=== PATIENT | female | born 1960 | race Caucasian/White ===

== ENCOUNTER 2022-09-28 08:38 | Observation (INO) | payer OTHER, SELFPAY ==
[2022-09-28 08:44] VITALS: BP 115/74; PULSE 89; RESP 18; TEMP 36.6; O2SAT 98; BMI 34.9
--- NOTE | 2022-09-28 08:59 | ED.ABDPAIN1 ---
HPI - Abdominal Pain General Chief Complaint: Abdominal Pain Stated Complaint: ABDOMINAL PAIN Time Seen by Provider: 09/28/22 08:49 Source: patient Mode of arrival: walk-in Limitations: no limitations History of Present Illness HPI narrative: 62-year-old female presents for bilateral lower abdominal pain. She's had it for five days. She's had issues with urinary tract infections recently. She states she was sweaty and thinks that she had a fever home but she didn't check her temperature. No trauma or constipation. The pain is moderate and continuous. Related Data Allergies Allergy/AdvReac Type Severity Reaction Status Date / Time No Known Drug Allergies Allergy Verified 09/28/22 08:44 Review of Systems ROS Narrative A ten point review of systems is negative except as noted above. Exam Narrative Exam Narrative: Nurses note and vital signs reviewed and patient is not hypoxic. General: The patient appears well and in no apparent distress. Patient is resting comfortably on cart. Skin: Warm, dry, no pallor noted. There is no rash noted. Head: Normocephalic, atraumatic Eye: Normal conjunctiva, no drainage Ears, Nose, Mouth, and Throat: oral mucosa is moist. Nares patent. Cardiovascular: Regular Rate and Rhythm Respiratory: Patient is in no distress, no accessory muscle use, lungs are clear to auscultation, no wheezing, rales or rhonchi Back: non-tender GI: Normal bowel sounds, mild tenderness to palpation across the lower abdomen, no masses appreciated. No rebound, guarding, or rigidity noted. Musculoskeletal: The patient has no evidence of calf tenderness, no pitting edema, symmetrical pulses noted bilaterally Neurological: A&O, normal speech Psychiatric: Cooperative Constitutional Vital Signs, click to edit/add: Last Vital Signs Temp 97.8 F 09/28/22 08:44 Pulse 89 09/28/22 08:44 Resp 18 09/28/22 08:44 BP 115/74 09/28/22 08:44 Pulse Ox 98 09/28/22 08:44 O2 Del Method Room Air 09/28/22 08:44 Course Vital Signs Vital signs: Vital Signs Temperature 97.8 F 09/28/22 08:44 Pulse Rate 89 09/28/22 08:44 Respiratory Rate 18 09/28/22 08:44 Blood Pressure 115/74 09/28/22 08:44 Pulse Oximetry 98 09/28/22 08:44 Oxygen Delivery Method Room Air 09/28/22 08:44 Temperature 97.8 F 09/28/22 08:44 Pulse Rate 89 09/28/22 08:44 Respiratory Rate 18 09/28/22 08:44 Blood Pressure 115/74 09/28/22 08:44 Pulse Oximetry 98 09/28/22 08:44 Oxygen Delivery Method Room Air 09/28/22 08:44 MDM - Abdominal Pain MDM Narrative Medical decision making narrative: pyelonephritis is identified with WBC of sixteen thousand. Blood and urine cultures are performed and she was given IV Rocephin. Findings are discussed with the patient and her . case discussed with Dr. Smith. Differential Diagnosis Differential diagnosis: Likely abdominal pain, calculus of kidney, constipation, diverticulitis, gastroenteritis and small bowel obstruction Lab Data Attestation: I reviewed the patient's lab results. Labs: Lab Results 09/28/22 Range/Units 09:00 WBC 16.6 H (4.0-11.0) 10^3/uL RBC 4.08 L (4.20-5.40) 10^6/uL Hgb 13.2 (12.0-16.0) g/dL Hct 39.6 (36.0-48.0) % MCV 97.1 (81.0-99.0) fL MCH 32.4 (26.7-34.0) pg MCHC 33.3 (29.9-35.2) g/dL RDW 12.4 (11.0-15.0) % Plt Count 307 (150-450) 10^3/uL MPV 10.2 (9.5-13.5) fL Seg Neuts % (Manual) 75.0 Lymphocytes % (Manual) 10.0 L (20.5-60.0) % Monocytes % (Manual) 15.0 H (1.7-12.0) % Neutrophils # (Manual) 12.45 H (1.4-6.5) 10^3/uL Lymphocytes # (Manual) 1.66 (1.20-3.80) 10^3/uL Monocytes # (Manual) 2.49 H (0.30-0.80) 10^3/uL Sodium 135 L (136-145) mmol/L Potassium 3.2 L (3.5-5.1) mmol/L Chloride 100 (98-107) mmol/L Carbon Dioxide 25.8 (21.0-32.0) mmol/L Anion Gap 12.4 BUN 13.0 (7.0-18.0) mg/dL Creatinine 1.12 H (0.55-1.02) mg/dL Est GFR ( Amer) 60 (>=60) Est GFR (Non-Af Amer) 49 L (>=60) BUN/Creatinine Ratio 11.6 Glucose 125 H (74-106) mg/dL Calcium 8.9 (8.5-10.1) mg/dL Urine Color Yellow (YELLOW) Urine Clarity Clear (CLEAR) Urine pH 5.5 (5.0-9.0) Ur Specific [place] 1.020 (1.005-1.025) Urine Protein 100 A (NEG/TRACE) mg/dL Urine Glucose (UA) Negative (NEGATIVE) mg/dL Urine Ketones 15 A (NEGATIVE) mg/dL Urine Occult Blood Large A (NEGATIVE) Urine Nitrite Positive A (NEGATIVE) Urine Bilirubin Moderate A (NEGATIVE) Urine Urobilinogen >=8.0 (0.2-1.0) EU/dL Ur Leukocyte Esterase Large A (NEGATIVE) Urine RBC 5-10 A (0-2) #/HPF Urine WBC 20-50 A (NONE SEEN) #/HPF Ur Squamous Epith Cells Many A (NONE/RARE) #/LPF Urine Bacteria Large A (NONE SEEN) #/HPF Urine Mucus None seen (NONE SEEN) Ur Culture Indicated? Yes Imaging Data CT scan - abdomen: Radiologist's impression: CT abdomen and pelvis per radiology shows acute pyelonephritis Discharge Plan Discharge Chief Complaint: Abdominal Pain Clinical Impression: Pyelonephritis Patient Disposition: Admitted As Inpatient Time of Disposition Decision: 11:17 Condition: Good Referrals: SPENSER SINGH [Primary Care Provider] - 1 week
[2022-09-28 09:20] LABS: Bilirubin Urine MODERATE (NEGATIVE); Blood Urine LARGE (NEGATIVE); Clarity Urine CLEAR (CLEAR); Color Urine YELLOW (YELLOW); Glucose Urine UA NEGATIVE (NEGATIVE); Hematocrit 39.6 % (36.0-48.0); Hemoglobin 13.2 g/dL (12.0-16.0); Ketones Urine 15 mg/dL (NEGATIVE); Leukocyte Esterase Urine LARGE (NEGATIVE); Mean Corpuscular HGB Conc 33.3 g/dL (29.9-35.2); Mean Corpuscular Hemoglobin 32.4 pg (26.7-34.0); Mean Corpuscular Volume 97.1 fL (81.0-99.0); Mean Platelet Volume 10.2 fL (9.5-13.5); Nitrite Urine POSITIVE (NEGATIVE); Platelet Count 307 10^3/uL (150-450); Protein Urine 100 mg/dL (NEG/TRACE); Red Blood Count 4.08 10^6/uL (4.20-5.40); Red Cell Distribution Width 12.4 % (11.0-15.0); Urobilinogen Urine >=8.0 EU/dL (0.2-1.0); White Blood Count 16.6 10^3/uL (4.0-11.0); pH Urine 5.5 (5.0-9.0)
[2022-09-28 09:27] LABS: Anion Gap 12.4; BUN Creatinine Ratio 11.6; Calcium 8.9 mg/dL (8.5-10.1); Carbon Dioxide 25.8 mmol/L (21.0-32.0); Chloride 100 mmol/L (98-107); Estimated GFR (African America 60 (>=60); Estimated GFR (Non-African Ame 49 (>=60); Glucose 125 mg/dL (74-106); Potassium 3.2 mmol/L (3.5-5.1); Sodium 135 mmol/L (136-145)
[2022-09-28 09:43] LABS: Lymphocytes Absolute Manual 1.66 10^3/uL (1.20-3.80); Segmented Neut Absolute Manual 12.45 10^3/uL (1.4-6.5)
[2022-09-28 09:44] LABS: Monocytes Absolute Manual 2.49 10^3/uL (0.30-0.80)
[2022-09-28 09:50] LABS: Urine Microscopic Indicated YES
--- NOTE | 2022-09-28 09:50 | CT_ITS ---
The [address] [address] Patient Name: ANTOINETTE COBB MRN: [id number] date: 1960 Sex: F Assigned Patient Location: ER Current Patient Location: ER Accession/Order Number: [id number] Exam Date: 09/28/2022 10:00 Report Date: 09/28/2022 10:51 At the request of: CARLOS NASSAR Procedure: CT abdomen pelvis w con EXAM: CT abdomen pelvis w con HISTORY: low abd pain, elevated WBC COMPARISON: None. TECHNIQUE: Axial CT images were obtained of the abdomen and pelvis with intravenous contrast. Multiplanar reconstructions were performed. ABDOMEN/PELVIS FINDINGS: Lower Chest: There is a small cystic lesion in the partially visualized posterior mediastinum, possibly representing a pericardial cyst, measuring 2.4 cm. Liver: A cystic lesion is present in the right hepatic lobe measuring 1.0 cm. Biliary/Gallbladder: Gallstones present in the gallbladder lumen. Pancreas: Unremarkable. Spleen: Unremarkable. Adrenal Glands: Unremarkable. Kidneys: Multifocal areas of heterogeneous hypoenhancement present in the right kidney. No renal calculus or hydronephrosis identified. There is mild right-sided perinephric fat stranding. Gastrointestinal/Peritoneum: There is a small hiatal hernia. Moderate colonic diverticulosis. The appendix is unremarkable. No free air or free fluid. Vascular: Unremarkable. Lymph Nodes: No enlarged lymph nodes by CT size criteria. Pelvic Organs: Unremarkable. Bladder: A few small foci of gas are present in the urinary bladder. Bones: No acute osseous abnormality. Moderate multilevel degenerative changes are present in the visualized spine. Soft tissues: Unremarkable. CT/CT abdomen pelvis w con IMPRESSION: 1. Multifocal areas of heterogeneous hypoenhancement in the right kidney with mild perinephric fat stranding, likely due to acute pyelonephritis. 2. A few small foci of gas in the urinary bladder, possibly due to recent catheterization or an infectious etiology. 3. Moderate colonic diverticulosis. 4. Small hiatal hernia. 5. Cholelithiasis. Electronically authenticated by: RONAL JORDAN Date: 09/28/2022 10:51
[2022-09-28 09:56] LABS: Bacteria Urine LARGE #/HPF (NONE SEEN); Mucus Urine NONE SEEN (NONE SEEN); Squamous Epithelial Cell Urine MANY #/LPF (NONE/RARE); WBC Urine 20-50 #/HPF (NONE SEEN)
[2022-09-28 09:57] LABS: Urine Culture Indicated YES
[2022-09-28] MEDS: CEFTRIAXONE 2,000 MG in 0.9 % SODIUM CHLORIDE 100 ML 200 MG IV (11:22)
[2022-09-28 11:28] LABS: Bilirubin Total 2.1 mg/dL (0.2-1.0)
[2022-09-28 11:29] LABS: Alanine Aminotransferase 57 U/L (14-59); Albumin Globulin Ratio 0.8; Albumin Level 3.4 g/dL (3.4-5.0); Alkaline Phosphatase 193 U/L (46-116); Aspartate Amino Transferase 28 U/L (15-37); Bilirubin Direct 1.3 mg/dL (0.0-0.2); Globulin 4.1 g/dL; Total Protein 7.5 g/dL (6.4-8.2)
[2022-09-28 12:02] VITALS: BP 141/76; PULSE 77; RESP 16; TEMP 37.2; O2SAT 97; BMI 33.7
--- NOTE | 2022-09-28 12:09 | P.HP_ITS ---
H&P: HPI History of Present Illness Chief complaint: Abdominal pain Narrative: 62 y/o female to ER with abdominal pain. Reports not feeling well for several days. Hot and cold chills but not check temp. Frequently broke out in sweat. Severe fatigue and sleeping most of the day. Decreased appetite and nausea but no emesis or diarrhea. Noticed dark urine. Pain in lower abdomen and to ER. WBC elevated. Afebrile. UA showed UTI. TB elevated. CT abdomen showed right pyelonephritis and gallstones. Admitted for treatment. Review of Systems ROS Constitutional Reports: chills, fatigue and night sweats; Denies: fever Cardiovascular Denies: chest pain, palpitations or edema Respiratory Denies: shortness of breath, cough or wheezing Gastrointestinal Reports: abdominal pain and nausea; Denies: vomiting or diarrhea Genitourinary Denies: painful urination, urinary frequency or urinary urgency PFSH PFSH Family History (Updated 09/28/22 @ 11:58 by Allison Wood) Father Family history of COPD (chronic obstructive pulmonary disease) Family history of myocardial infarction Mother Family history of cancer Family history of hypertension Grandfather Family history of diabetes mellitus Social History (Updated 09/28/22 @ 12:02 by Allison Wood) Within the past year, how often did you have a drink containing alcohol: 2-3 times a week Within the past year, how many standard drinks containing alcohol did you have on a typical day: 1 or 2 Within the past year, how often did you have six or more drinks on one occasion: less than monthly Total score: 1 Score interpretation: A score of 3 or more indicates drinking is likely to affect patient's safety. Smoking status: Never smoker Non-prescribed substance use: denies use Previous occupational history: [employer] Highest level of school completed/degree received: Associate degree: occupational, technical, vocational program Are you now , , , , never or living with a partner: In a typical week, how many times do you talk on the telephone with family, friends, or neighbors: 3 or more times per week How often do you get together with friends or relatives: once per week How often do you attend lutheran or mormonism services: never Do you belong to any clubs or organizations such as lutheran groups unions, fraternal or athletic groups, or school groups: no Total score: 1 Score interpretation: A score of less than or equal to 1 indicates the most socially isolated. Little interest or pleasure in doing things: not at all Feeling down, depressed, or hopeless: not at all Feel stressed/tense/nervous/anxious/difficulty sleeping: only a little Meds Home Medications and Allergies Allergies Allergy/AdvReac Type Severity Reaction Status Date / Time No Known Drug Allergies Allergy Verified 09/28/22 08:44 Exam Constitutional Vital Signs, click to edit/add: Last Vital Signs Temp 97.8 F 09/28/22 08:44 Pulse 89 09/28/22 08:44 Resp 18 09/28/22 08:44 BP 115/74 09/28/22 08:44 Pulse Ox 98 09/28/22 08:44 O2 Del Method Room Air 09/28/22 08:44 Documenting provider has reviewed patient's vital signs: yes Common normals: no apparent distress, oriented x3 and alert HENMT Common normals: normocephalic Eye Common normals: PERRL and EOMs intact bilaterally Respiratory Common normals: normal respiratory effort and clear to auscultation bilaterally Cardio Common normals: regular rate, regular rhythm, no gallops, no murmurs and no rub GI Common normals: soft to palpation Auscultation: normoactive bowel sounds Palpation: tender (Mild diffuse TTP); no guarding Extremity General: no edema Results Labs Labs: Short CBC 09/28/22 Range/Units 09:00 WBC 16.6 H (4.0-11.0) 10^3/uL Hgb 13.2 (12.0-16.0) g/dL Hct 39.6 (36.0-48.0) % Plt Count 307 (150-450) 10^3/uL BMP 09/28/22 09:00 Sodium 135 L Potassium 3.2 L Chloride 100 Carbon Dioxide 25.8 BUN 13.0 Creatinine 1.12 H Glucose 125 H Calcium 8.9 Liver Function 09/28/22 Range/Units 09:45 Total Bilirubin 2.1 H (0.2-1.0) mg/dL Direct Bilirubin 1.3 H* (0.0-0.2) mg/dL AST 28 (15-37) U/L ALT 57 (14-59) U/L Alkaline Phosphatase 193 H (46-116) U/L Albumin 3.4 (3.4-5.0) g/dL Urine 09/28/22 Range/Units 09:00 Urine Color Yellow (YELLOW) Urine Clarity Clear (CLEAR) Urine pH 5.5 (5.0-9.0) Ur Specific [place] 1.020 (1.005-1.025) Urine Protein 100 A (NEG/TRACE) mg/dL Urine Glucose (UA) Negative (NEGATIVE) mg/dL Imaging CT scan - abdomen: Attestation: I have reviewed the pertinent imaging results. Assessment and Plan Assessment and Plan (1) Pyelonephritis: (2) Cholelithiasis: (3) Hyperbilirubinemia: (4) Recurrent UTI: Plan Preesnted with acute pyelonephritis and start rocephin and levaquin while awaiting culture. Start IV fluids. Bilirubin elevated and gallstones on CT. Check US RUQ. Likely will be able to discharge in am.
--- NOTE | 2022-09-28 12:26 | CM.NOTE ---
Rounds made with Dr. Smith. Just received from ER. No plan for discharge today.
[2022-09-28] MEDS: POTASSIUM CHLORIDE IN 0.9%NACL 1,000 ML 100 MEQ IV ×2 (13:34→22:26)
[2022-09-28] MEDS: CEFTRIAXONE 1,000 MG in 0.9 % SODIUM CHLORIDE 50 ML 100 MG IV (13:35)
[2022-09-28] MEDS: ACETAMINOPHEN 500 MG TABLET 1000 MG PO ×2 (14:16→22:28)
[2022-09-28] MEDS: LEVOFLOXACIN IN DEXTROSE 5 % 750 MG/150 ML PIGGYBACK IV (14:16)
--- NOTE | 2022-09-28 15:29 | US_ITS ---
The [address] [address] Patient Name: ANTOINETTE COBB MRN: [id number] date: 1960 Sex: F Assigned Patient Location: MS Current Patient Location: MS Accession/Order Number: [id number] Exam Date: 09/28/2022 15:30 Report Date: 09/28/2022 16:21 At the request of: ARUNA VIDAL Procedure: US right upper quadrant EXAM: US right upper quadrant HISTORY: abdominal pain, elevated bilirubin COMPARISON: CT abdomen 09/28/2022 TECHNIQUE: Transabdominal exam FINDINGS: Diffuse fatty infiltration of the liver. The incidental cyst right lobe measuring [address] examination is not identified on the ultrasound examination likely due to its small size. Multiple gallstones within the gallbladder with wall echo shadow triad with the gallbladder shadowed out by the multiple gallstones. No tenderness with sonographic probe. No wall thickening. No abnormal fluid. Common bile duct is normal and measures 6 mm Visualized pancreas is unremarkable The right kidney measures 12 cm No hydronephrosis No free fluid. The portal vein is patent. US/US right upper quadrant IMPRESSION: Gallbladder filled with gallstones. Electronically authenticated by: MATT YAP Date: 09/28/2022 16:21
[2022-09-28 19:41] VITALS: BP 118/75; PULSE 76; RESP 16; TEMP 36.8; O2SAT 95
[2022-09-29 01:52] LABS: A. calcoaceticus-baumannii Cpx NOT DETECTED (NOT DETECTE); Bacteroides fragilis NOT DETECTED (NOT DETECTE); Candida albicans NOT DETECTED (NOT DETECTE); Candida auris NOT DETECTED (NOT DETECTE); Candida glabrata NOT DETECTED (NOT DETECTE); Candida krusei NOT DETECTED (NOT DETECTE); Candida parapsilosis NOT DETECTED (NOT DETECTE); Candida tropicalis NOT DETECTED (NOT DETECTE); Cryptococcus neoformans/gattii NOT DETECTED (NOT DETECTE); Enterobacter cloacae complex NOT DETECTED (NOT DETECTE); Enterococcus faecalis NOT DETECTED (NOT DETECTE); Enterococcus faecium NOT DETECTED (NOT DETECTE); Haemophilus influenzae NOT DETECTED (NOT DETECTE); Klebsiella aerogenes NOT DETECTED (NOT DETECTE); Klebsiella pneumoniae group NOT DETECTED (NOT DETECTE); Listeria monocytogenes NOT DETECTED (NOT DETECTE); Neisseria meningitidis NOT DETECTED (NOT DETECTE); Proteus spp. NOT DETECTED (NOT DETECTE); Pseudomonas aeruginosa NOT DETECTED (NOT DETECTE); Salmonella spp. NOT DETECTED (NOT DETECTE); Serratia marcescens NOT DETECTED (NOT DETECTE); Staphylococcus epidermidis NOT DETECTED (NOT DETECTE); Staphylococcus lugdunensis NOT DETECTED (NOT DETECTE); Staphylococcus spp. NOT DETECTED (NOT DETECTE); Stenotrophomonas maltophilia NOT DETECTED (NOT DETECTE); Streptococcus agalactiae NOT DETECTED (NOT DETECTE); Streptococcus pneumoniae NOT DETECTED (NOT DETECTE); Streptococcus pyogenes NOT DETECTED (NOT DETECTE); Streptococcus spp. NOT DETECTED (NOT DETECTE)
[2022-09-29 02:59] LABS: CTX-M NOT DETECTED (NOT DETECTE); IMP NOT DETECTED (NOT DETECTE); KPC NOT DETECTED (NOT DETECTE); mcr-1 NOT DETECTED (NOT DETECTE)
[2022-09-29 03:00] LABS: NDM NOT DETECTED (NOT DETECTE); OXA-48-like NOT DETECTED (NOT DETECTE); VIM NOT DETECTED (NOT DETECTE)
[2022-09-29 03:03] LABS: Enterobacterales DETECTED (NOT DETECTE)
[2022-09-29 04:26] VITALS: BP 115/61; PULSE 70; RESP 16; TEMP 36.9; O2SAT 95
[2022-09-29 05:09] LABS: Alanine Aminotransferase 55 U/L (14-59); Albumin Globulin Ratio 0.7; Albumin Level 2.7 g/dL (3.4-5.0); Alkaline Phosphatase 189 U/L (46-116); Anion Gap 11.8; Aspartate Amino Transferase 24 U/L (15-37); Bilirubin Total 1.5 mg/dL (0.2-1.0); Calcium 8.2 mg/dL (8.5-10.1); Chloride 106 mmol/L (98-107); Estimated GFR (African America >60 (>=60); Estimated GFR (Non-African Ame 56 (>=60); Globulin 3.7 g/dL; Glucose 113 mg/dL (74-106); Potassium 3.8 mmol/L (3.5-5.1); Sodium 137 mmol/L (136-145); Total Protein 6.4 g/dL (6.4-8.2)
[2022-09-29] MEDS: ACETAMINOPHEN 500 MG TABLET 1000 MG PO (09:50)
[2022-09-29] MEDS: POTASSIUM CHLORIDE IN 0.9%NACL 1,000 ML 100 MEQ IV (09:51)
[2022-09-29 10:21] LABS: Hemoglobin 11.1 g/dL (12.0-16.0); Mean Corpuscular HGB Conc 32.6 g/dL (29.9-35.2); Mean Corpuscular Hemoglobin 32.4 pg (26.7-34.0); Mean Corpuscular Volume 99.1 fL (81.0-99.0); Mean Platelet Volume 10.7 fL (9.5-13.5); Platelet Count 266 10^3/uL (150-450); Red Blood Count 3.43 10^6/uL (4.20-5.40)
[2022-09-29 10:54] LABS: Lymphocytes Absolute Manual 1.12 10^3/uL (1.20-3.80); Monocytes Absolute Manual 2.24 10^3/uL (0.30-0.80); Segmented Neut Absolute Manual 10.64 10^3/uL (1.4-6.5)
--- NOTE | 2022-09-29 11:33 | CM.NOTE ---
Rounds made with Dr. Smith. Plan for discharge today. Ms. Huertas in agreement.
--- NOTE | 2022-09-29 11:42 | PM.DS1 ---
DS: Providers Provider Date of admission: 09/28/22 11:13 Primary care physician: SPENSER SINGH DS: Diagnosis Discharge Diagnosis (1) Pyelonephritis: (2) Cholelithiasis: (3) Hyperbilirubinemia: (4) Recurrent UTI: DS: Summary Hospital Course Hospital Course: Reason for admission: See H&P for details. 62 y/o female to ER with abdominal pain. Reports not feeling well for several days. Hot and cold chills but not check temp. Frequently broke out in sweat. Severe fatigue and sleeping most of the day. Decreased appetite and nausea but no emesis or diarrhea. Noticed dark urine. Pain in lower abdomen and to ER. WBC elevated. Afebrile. UA showed UTI. TB elevated. CT abdomen showed right pyelonephritis and gallstones. Admitted for treatment. Hospital course: Started levaquin and rocephin for infection. Started IV fluids. RUQ US performed and showed gallstones but no evidence of cholecystitis. Patient improved. Afebrile and WBC improved. Minimal pain and eating well. Discharged home in stable condition. Will take levaquin and cefdinir while awaiting culture results. May need outpatient surgical evaluation for cholelithiasis. F/u with PCP in 2-4 weeks. Time Spent with Patient Time attestation: Total time spent providing and/or coordinating discharge services: Exam Constitutional Vital Signs, click to edit/add: Last Vital Signs Temp 98.5 F 09/29/22 04:26 Pulse 70 09/29/22 04:26 Resp 16 09/29/22 04:26 BP 115/61 09/29/22 04:26 Pulse Ox 95 09/29/22 04:26 O2 Del Method Room Air 09/29/22 04:26 Documenting provider has reviewed patient's vital signs: yes Common normals: no apparent distress, oriented x3 and alert HENMT Common normals: normocephalic Eye Common normals: PERRL and EOMs intact bilaterally Respiratory Common normals: normal respiratory effort and clear to auscultation bilaterally Cardio Common normals: regular rate, regular rhythm, no gallops, no murmurs and no rub GI Common normals: Normal to inspection, nondistended, normoactive bowel sounds present and non-tender Extremity Common normals: no pedal edema DS: Data Data Completed and Pending Labs on day of discharge: Labs from last 24 hours 09/29/22 09/29/22 09/28/22 04:47 04:34 11:20 WBC 14.0 H RBC 3.43 L Hgb 11.1 L Hct 34.0 L MCV 99.1 H MCH 32.4 MCHC 32.6 RDW 13.0 Plt Count 266 MPV 10.7 Neut % (Auto) 76.0 H Seg Neuts % (Manual) 76.0 Lymphocytes % (Manual) 8.0 L Monocytes % (Manual) 16.0 H Eosinophils % (Manual) 0.0 L Basophils % (Manual) 0.0 L Neutrophils # (Manual) 10.64 H Lymphocytes # (Manual) 1.12 L Monocytes # (Manual) 2.24 H Eosinophils # (Manual) 0.00 Basophils # (Manual) 0.00 Sodium 137 Potassium 3.8 Chloride 106 Carbon Dioxide 23.0 Anion Gap 11.8 BUN 14.0 Creatinine 1.00 Est GFR ( Amer) >60 Est GFR (Non-Af Amer) 56 L BUN/Creatinine Ratio 14.0 Glucose 113 H Calcium 8.2 L Total Bilirubin 1.5 H AST 24 ALT 55 Alkaline Phosphatase 189 H Total Protein 6.4 Albumin 2.7 L Globulin 3.7 Albumin/Globulin Ratio 0.7 Hugo H. influenza (PCR) Not detected A.calcoaceticus-baumannii cmplx PCR Not detected Bacteroides fragilis Not detected Dian albicans (PCR) Not detected Dian auris (PCR) Not detected C. glabrata (PCR) Not detected C. krusei (PCR) Not detected C. parapsilosis (PCR) Not detected C. tropicalis (PCR) Not detected C. neoform/gattii (PCR) Not detected Enterobacterales (PCR) Detected A* E. cloacae complex PCR Not detected Enterococc faecalis PCR Not detected Enterococc faecium PCR Not detected E. coli (PCR) Detected A* Klebsiella aerogenes (PCR) Not detected Klebsiella oxytoca PCR Not detected K. pneumoniae group (PCR) Not detected List. monocytogenes PCR Not detected N. meningitidis (PCR) Not detected Proteus spp. (copies/mL) Not detected Salmonella spp. (PCR) Not detected Serratia marcescens PCR Not detected Staphylococcus sp PCR Not detected Staph aureus (PCR) Not detected mecA/C & MREJ Resist Gene Not applicable mecA/C-Methicil Resis Gene Not applicable mcr-1 Colistin Res Gene PCR Not detected Staph epidermidis (PCR) Not detected Staph lugdunensis (TEM-PCR) Not detected S. maltophilia (PCR) Not detected Streptococcus sp PCR Not detected Strep agalactiae (PCR) Not detected Strep pneumoniae (PCR) Not detected S. pyogenes (PCR) Not detected P. aeruginosa (PCR) Not detected Kassie/B-Vanco Res Genes Not applicable blaIMP Car res Gene PCR Not detected KPC (blaKPC) Detect PCR Not detected NDM (blaNDM) Detect PCR Not detected OXA-48 Carbapenem Resis Gene (PCR) Not detected blaVIM Car Res Gene PCR Not detected CTX-M ESBL (PCR) Not detected Discharge Plan Discharge Disposition: Home, Self-Care Condition: Good Discharge Medications: New levofloxacin 750 mg tablet 750 mg PO DAILY 7 Days Qty: 7 0RF cefdinir 300 mg capsule 300 mg PO BID 10 Days Qty: 20 0RF Activity: resume usual activities as tolerated Diet: advance to your usual diet Patient Instructions: Levofloxacin (By mouth), Cefdinir (By mouth), Urinary Tract Infection in Women (DC), Kidney Infection (DC) Forms: Portal Instructions Follow Up Appointments: Follow up appt. with Dr. Wayne Sellers on @ 2:30pm Office #: [phone] [address] [place] [address] Please call the office prior to the appt. to provide new patient information
--- NOTE | 2022-10-01 12:12 | CM.DCFOLLOWU ---
Person spoke with:patient How are you feeling? much better today, was not feeling so well yesterday, but voiced she just had to give it time and needs to drink more fluids How is your pain? better Did you understand your discharge instructions? yes Do you have any questions about your discharge instructions? no Were you given any prescriptions at discharge? yes Were you able to get your prescriptions filled? yes Do you understand how to take your medications as ordered? yes Do you have any questions about your follow up appointment and do you plan to keep your follow up appointment? no questions and keeping follow up Is there anything else that you would like to discuss? no Questions/Comments/Concerns/Other:
== END 2022-09-29 12:43 | disposition home or self-care (01) ==
LOC: ER 11:18 → MS 12:12
PROVIDERS: Admitting Provider Family Medicine; Emergency Provider Emergency Medicine; PCP Family Medicine; Visit Provider Family Medicine
DX: N10 Acute pyelonephritis (principal); K80.20 Calculus of gallbladder without cholecystitis without obstruction; E80.6 Other disorders of bilirubin metabolism; R78.81 Bacteremia; Z87.440 Personal history of urinary (tract) infections; B96.20 Unspecified Escherichia coli [E. coli] as the cause of diseases classified elsewhere
CPT/HCPCS: 36415; 74177; 76705; 80048; 80053; 80076; 81001; 81003; 85027; 87040; 87086; 87150; 87186; 96365; 96366; 96368; 96375; 96376; 99285; G0378; Q9967

== ENCOUNTER 2023-08-09 08:56 | Emergency (ER) | payer SELFPAY ==
[2023-08-09 09:01] VITALS: BP 148/73; PULSE 88; O2SAT 98; BMI 34.6
--- NOTE | 2023-08-09 09:24 | ED_ITS ---
HPI - Ear Problem General Chief complaint: Ear Stated complaint: RIGHT EAR PAIN AND SOME HEARING LOSS Time Seen by Provider: 08/09/23 09:24 Source: patient and family Mode of arrival: walk-in History of Present Illness HPI Narrative: This patient is here for discomfort and decreased hearing. She was at an urgent care and was placed on a oral steroid, doxycycline, albuterol, and eardrops. Her breathing is better but she still has hearing problems. She does not have insurance. She has not seen ENT. She has no history of barotrauma or water exposure. She never had exquisite or serious pain in her ears. She says her lungs and her breathing is much better but the ears are still problematic. Related Data Previous Rx's ?Medication ?Instructions ?Recorded cefdinir 300 mg capsule 300 mg PO BID 10 days #20 caps 09/29/22 levofloxacin 750 mg tablet 750 mg PO DAILY 7 days #7 tabs 09/29/22 Allergies Allergy/AdvReac Type Severity Reaction Status Date / Time No Known Drug Allergies Allergy Verified 09/28/22 08:44 [facility] Medical History (Updated 08/09/23 @ 09:27 by Alexander Vu MD) Cholelithiasis ?K80.20 - Calculus of gallbladder without cholecystitis without obstruction (ICD-10) Recurrent UTI ?N39.0 - Urinary tract infection, site not specified (ICD-10) Family History (Updated 09/28/22 @ 11:58 by Allison Wood) Father Family history of COPD (chronic obstructive pulmonary disease) Family history of myocardial infarction Mother Family history of cancer Family history of hypertension Grandfather Family history of diabetes mellitus Social History (Updated 09/28/22 @ 12:02 by Allison Wood) Within the past year, how often did you have a drink containing alcohol: 2-3 times a week Within the past year, how many standard drinks containing alcohol did you have on a typical day: 1 or 2 Within the past year, how often did you have six or more drinks on one occasion: less than monthly Total score: 1 Score interpretation: A score of 3 or more indicates drinking is likely to affect patient's safety. Smoking status: Never smoker Non-prescribed substance use: denies use Previous occupational history: [employer] Highest level of school completed/degree received: Associate degree: occupational, technical, vocational program Are you now , , , , never or living with a partner: In a typical week, how many times do you talk on the telephone with family, friends, or neighbors: 3 or more times per week How often do you get together with friends or relatives: once per week How often do you attend gnosticism or zoroastrianism services: never Do you belong to any clubs or organizations such as gnosticism groups unions, fraternal or athletic groups, or school groups: no Total score: 1 Score interpretation: A score of less than or equal to 1 indicates the most socially isolated. Little interest or pleasure in doing things: not at all Feeling down, depressed, or hopeless: not at all Feel stressed/tense/nervous/anxious/difficulty sleeping: only a little Exam Narrative Exam Narrative: Awake alert pleasant no apparent distress. Auscultation of the lungs show the lungs to be clear with no wheeze rales or rhonchi or evidence of bronchospasm. ENT examination shows both TMs to be red dull loss of landmarks but no perforation. There is no evidence of external otitis. She has no facial swelling. She does describe some fullness over the frontal area but not the maxillary area. Rest examination is normal. Constitutional Vital Signs, click to edit/add: Last Vital Signs Pulse 88 08/09/23 09:01 Resp 18 08/09/23 09:01 BP 148/73 H 08/09/23 09:01 Pulse Ox 98 08/09/23 09:01 O2 Del Method Room Air 08/09/23 09:01 Course Vital Signs Vital signs: Vital Signs Pulse Rate 88 08/09/23 09:01 Respiratory Rate 18 08/09/23 09:01 Blood Pressure 148/73 H 08/09/23 09:01 Pulse Oximetry 98 08/09/23 09:01 Oxygen Delivery Method Room Air 08/09/23 09:01 Pulse Rate 88 08/09/23 09:01 Respiratory Rate 18 08/09/23 09:01 Blood Pressure 148/73 H 08/09/23 09:01 Pulse Oximetry 98 08/09/23 09:01 Oxygen Delivery Method Room Air 08/09/23 09:01 Medical Decision Making MDM Narrative Medical decision making narrative: There is a possibility that this patient has persistent otitis media from a sinus type infection. We discussed the use of a CAT scan or treating her empirically and she is opted to not have a CT scan today. She will be placed on [id number] decongestions and nasal steroid as well as changing to Augmentin for the next 10 days. She was advised to follow-up with ENT if she does not show improvement. Discharge Plan Discharge Stand Alone Forms: Portal Instructions Chief Complaint: Ear Clinical Impression: Bilateral acute otitis media Patient Disposition: Home, Self-Care Time of Disposition Decision: 09:26 Prescriptions / Home Meds: No Action levofloxacin 750 mg tablet 750 mg PO DAILY 7 Days Qty: 7 0RF cefdinir 300 mg capsule 300 mg PO BID 10 Days Qty: 20 0RF Print Language: [place] Additional Instructions: Start Augmentin. Use [id number] nasal steroid spray and nasal decongestion medication Referrals: SPENSER SINGH [Primary Care Provider] - 1 week
[2023-08-09 09:37] VITALS: BP 133/86; PULSE 88; O2SAT 98
== END 2023-08-09 09:37 | disposition home or self-care (01) ==
PROVIDERS: Emergency Provider Emergency Medicine Emergency Medical Services; PCP Family Medicine
DX: H66.93 Otitis media, unspecified, bilateral (principal)
CPT/HCPCS: 99283